=== PATIENT | male | born 1990 | race Caucasian/White ===

== ENCOUNTER 2020-10-20 08:25 | Emergency (ER) | payer BC ==
[~2020-10-20] VITALS: Ht 188 cm; Wt 81.7 kg
[2020-10-20 09:04] LABS: ABSOLUTE NEUTROPHILS 2.3 thou/uL (1.4-8.2); BASOPHILS 0.8 % (0.0-2.0); EOSINOPHILS 2.9 % (0.0-3.0); HEMATOCRIT 42.4 % (42.0-52.0); HEMOGLOBIN 14.6 gm/dL (14.0-18.0); LYMPHOCYTES 41.9 % (24.0-44.0); MCH 30.7 pg (26.0-34.0); MCHC 34.4 g/dL (28.0-37.0); MCV 89.2 fL (80.0-100.0); MONOCYTES 10.4 % (1.0-8.0); PLATELET COUNT 238 thou/uL (150-400); RBC 4.76 mil/uL (4.50-6.00); RDW 13.9 % (10.5-14.5); WBC 5.3 thou/uL (4.0-11.0)
[2020-10-20 09:08] LABS: ANION GAP 7 mmol/L (7-16); BUN 12 mg/dL (7-18); CALCIUM 9.1 mg/dL (8.5-10.1); CHLORIDE 105 mmol/L (98-107); CO2 29 mmol/L (21-32); CREATININE 1.1 mg/dL (0.7-1.3); GLUCOSE 108 mg/dL (74-106); POTASSIUM 3.8 mmol/L (3.5-5.1); SODIUM 141 mmol/L (136-145)
[2020-10-20 09:21] LABS: ALBUMIN 4.2 g/dL (3.4-5.0); SGOT 12 U/L (15-37); SGPT 18 U/L (16-63); TOTAL BILIRUBIN 0.3 mg/dL (0.2-1.0); TOTAL PROTEIN 7.2 g/dL (6.4-8.2); TROPONIN-I <0.06 ng/mL (<0.06)
--- NOTE | 2020-10-20 12:25 | EKG ---
[place] [address] [facility] [place] [address] ELECTROCARDIOGRAM REPORT Name: JOEL GILMAN Room #: [facility]#: [id number] Admission: 10/20/20 Attend Phys: Discharge: Date of : 86 Report #: [id number] [facility] ED Test Date: 2020-10-20 Test Time: 08:28:07 Pat Name: JOEL GILMAN Department: Room: Gender: [employer] Work[employer]: ALEXIA : 1990 Requested By: Fanta Knight Order Number: [id number] MD: Juan Cedeno Measurements Intervals [place] Rate: 57 P: 62 RI: 173 QRS: 57 QRSD: 102 T: 45 QT: 375 QTc: 365 Interpretive Statements Sinus rhythm Baseline wander in lead(s) III No previous ECG available for comparison Electronically Signed On 10-20-2020 12:25:14 CDT by Juan Cedeno [email or web address] <ELECTRONICALLY SIGNED> By: Juan Cedeno MD 10/20/20 1225 0828 0828 Juan Cedeno MD /FRED[place]ICK
[2020-10-20] MEDS ORDERED: PEPCID40 MG PO (12:34)
[2020-10-20 13:11] VITALS: BP 101/64
== END 2020-10-20 13:15 | disposition home or self-care (01) ==
LOC: ER 08:25
PROVIDERS: Emergency Medicine
DX: R07.89 Other chest pain (principal); Z20.822 Contact with and (suspected) exposure to COVID-19; K21.9 Gastro-esophageal reflux disease without esophagitis